=== PATIENT | male | born 1960 | race Caucasian/White ===

== ENCOUNTER 2017-04-17 21:13 | Emergency (ER) | payer OTHER ==
[2017-04-17] MEDS ORDERED: Sodium Chloride 0.9% 10 ML Syringe FLUSH PRN (22:01)
[2017-04-17] MEDS ORDERED: Acetaminophen 325 MG Tab PO ONE (22:05)
--- NOTE | 2017-04-17 22:13 | EDM.PDOC ---
ED HPI GENERAL MEDICAL PROBLEM - General Chief Complaint: Diabetic Complaint Stated Complaint: [phone] DOESNT FEEL WELL DIAGNOSED WITH DIABETES Time Seen by Provider: 04/17/17 21:54 Source of Information: Reports: Patient, Family, RN, RN Notes Reviewed History Limitations: Reports: No Limitations - History of Present Illness INITIAL COMMENTS - FREE TEXT/NARRATIVE: Pt presents to the ER with c/o not feeling well for the past few weeks. Pt states he was in the clinic to see Dr. Ahn today. He was diagnosed with diabetes today, was given IV fluids. He states he was to be admitted to the hospital but he refused at that time. Pt states he took the glipizide today that was prescribed to him, prior to eating. He states he feels shaky and generally "not well". He c/o dry mouth, thirst and frequency of urination. Onset: Gradual Headache Pain Score (Numeric/FACES): 7 - Related Data Allergies Allergy/AdvReac Type Severity Reaction Status Date / Time No Known Allergies Allergy Verified 04/17/17 21:20 Home Meds: Home Meds Triamterene/Hydrochlorothiazid [Triamterene-HCTZ 37.5-25 MG] 1 tab PO DAILY [History] Albuterol [Proventil HFA] 2 puff INH ASDIRECTED PRN 11/29/14 [History] Aspirin [Halfprin] 81 mg PO BID 11/29/14 [History] Fish Oil/Jackson-3 Fatty Acids [Fish Oil 1,000 MG] 1 gm PO DAILY 11/29/14 [History ] Metoprolol Tartrate [Lopressor] 25 mg PO DAILY 11/29/14 [History] Multivitamin [Multivitamins] 1 tab PO DAILY 11/29/14 [History] Omeprazole 20 mg PO DAILY 11/29/14 [History] Simvastatin 20 mg PO BEDTIME 11/29/14 [History] glipiZIDE [Glucotrol XL] 5 mg PO BID 04/17/17 [History] Past Medical History HEENT History: Reports: Impaired Vision Cardiovascular History: Reports: Angina, Other (See Below) Other Cardiovascular History: leaking valve Respiratory History: Reports: Asthma Genitourinary History: Reports: Renal Calculus Endocrine/Metabolic History: Reports: Diabetes, Type II, Obesity/BMI 30+ Oncologic (Cancer) History: Reports: Prostate - Past Surgical History GI Surgical History: Reports: Cholecystectomy, Hernia, Abdominal Male Surgical History: Reports: TURP-Transurethral Resection of Prostate Social & Family History - Tobacco Use Smoking Status *Q: Never Smoker Second Hand Smoke Exposure: No - Alcohol Use Days Per Week of Alcohol Use: 3 Number of Drinks Per Day: 2 Total Drinks Per Week: 6 - Recreational Drug Use Recreational Drug Use: No Drug Use in Last 12 Months: No - Living Situation & Occupation Living situation: Reports: , with Family Occupation: Employed ED ROS GENERAL - Review of Systems Review Of Systems: ROS reveals no pertinent complaints other than HPI. ED EXAM GENERAL NO PERIP PULSE - Physical Exam Exam: See Below Exam Limited By: No Limitations General Appearance: Alert, WD/WN, Mild Distress Eye Exam: Bilateral Eye: EOMI, Normal Inspection, PERRL Ears: Normal External Exam, Hearing Grossly Normal Nose: Normal Inspection Throat/Mouth: Normal Inspection, Normal Voice, No Airway Compromise Head: Atraumatic, Normocephalic Neck: Normal Inspection, Supple, Non-Tender, Full Range of Motion Respiratory/Chest: No Respiratory Distress, Lungs Clear, Normal Breath Sounds, No Accessory Muscle Use, Chest Non-Tender Cardiovascular: Normal Peripheral Pulses, Regular Rate, Rhythm, No Edema, No Gallop, No JVD, No Murmur, No Rub GI/Abdominal: Normal Bowel Sounds, Soft, No Organomegaly, No Distention, No Abnormal Bruit, No Mass, Tender (Male) Exam: Deferred Rectal (Males) Exam: Deferred Back Exam: Normal Inspection, Full Range of Motion, NT Extremities: Normal Inspection, Normal Range of Motion, Non-Tender, Normal Capillary Refill, No Pedal Edema Neurological: Alert, Oriented, CN II-XII Intact, Normal Cognition, Normal Gait, Normal Reflexes, No Motor/Sensory Deficits Psychiatric: Normal Affect, Normal Mood Skin Exam: Warm, Dry, Intact, Normal Color, No Rash Lymphatic: No Adenopathy Course - Vital Signs Last Recorded V/S: Last Vital Signs Temp 98.0 F 04/17/17 22:42 Pulse 67 04/17/17 22:42 Resp 18 04/17/17 22:42 BP 131/59 L 04/17/17 22:42 Pulse Ox 94 L 04/17/17 22:42 - Orders/Labs/Meds Orders: Active Orders 24 hr Category Date Time Status Blood Glucose Check, Bedside [RC] ONETIME Care 04/17/17 21:21 Active Blood Glucose Check, Bedside [RC] ONETIME Care 04/17/17 23:44 Active Peripheral IV Care [RC] . DIRECTED Care 04/17/17 22:01 Active NS + KCl 20mEq/L [Normal Saline with 20 mEq KCl] 1,000 Med 04/17/17 23:15 Active ml IV ASDIRECTED Sodium Chloride 0.9% [Saline Flush] Med 04/17/17 22:01 Active 10 ml FLUSH ASDIRECTED PRN Peripheral IV Insertion Adult [OM.PC] Stat Oth 04/17/17 22:01 Ordered Medication Orders Potassium Chloride/Sodium Chloride (Normal Saline With 20 Meq Kcl) 1,000 mls @ 100 mls/hr IV ASDIRECTED MARCK Last Admin: 04/17/17 23:23 Dose: 100 mls/hr Sodium Chloride (Saline Flush) 10 ml FLUSH ASDIRECTED PRN PRN Reason: Keep Vein Open Last Admin: 04/17/17 22:12 Dose: 10 ml Labs: Laboratory Tests 04/17/17 04/17/17 04/17/17 Range/Units 21:21 22:10 22:10 WBC 6.1 (5.0-10.0) 10^3/uL RBC 5.04 (4.6-6.2) 10^6/uL Hgb 15.1 D (14.0-18.0) g/dL Hct 42.7 (40.0-54.0) % MCV 84.7 (80-100) fL MCH 30.0 (27.0-34.0) pg MCHC 35.4 H (33.0-35.0) g/dL Plt Count 163 (150-450) 10^3/uL Neut % (Auto) 51.9 (42.2-75.2) % Lymph % (Auto) 35.4 (20.5-50.1) % [place] % (Auto) 9.1 H (2-8) % Eos % (Auto) 3.1 H (1.0-3.0) % Baso % (Auto) 0.5 (0.0-1.0) % Sodium 132 L (135-145) mmol/L Potassium 3.0 L (3.6-5.0) mmol/L Chloride 95 L (101-111) mmol/L Carbon Dioxide 28.0 (21.0-31.0) mmol/L Anion Gap 12.0 BUN 13 (7-18) mg/dL Creatinine 0.9 (0.6-1.3) mg/dL Est Cr Clr Drug Dosing 95.76 mL/min Estimated GFR (MDRD) > 60 BUN/Creatinine Ratio 14.44 Glucose 321 H (74-105) mg/dL POC Glucose 304 H (70-105) mg/dl Calcium 8.3 L (8.4-10.2) mg/dl Total Bilirubin 1.3 H (0.2-1.0) mg/dL AST 60 H (10-42) IU/L ALT 73 H (10-60) IU/L Alkaline Phosphatase 106 (42-121) IU/L Total Protein 6.9 (6.7-8.2) g/dl Albumin 3.8 (3.2-5.5) g/dl Globulin 3.1 Albumin/Globulin Ratio 1.23 Urine Color (YELLOW) Urine Appearance (CLEAR) Urine pH (5.0-9.0) Ur Specific [place] (1.005-1.030) Urine Protein (NEGATIVE) Urine Glucose (UA) (NEGATIVE) Urine Ketones (NEGATIVE) Urine Occult Blood (NEGATIVE) Urine Nitrite (NEGATIVE) Urine Bilirubin (NEGATIVE) Urine Urobilinogen (0.2-1.0) mg/dL Ur Leukocyte Esterase (NEGATIVE) Urine RBC /HPF Urine WBC (0-5/HPF) /HPF Ur Epithelial Cells /HPF Urine Bacteria (0-FEW/HPF) /HPF Ketones Negative 04/17/17 04/17/17 04/17/17 Range/Units 22:17 23:09 23:48 WBC (5.0-10.0) 10^3/uL RBC (4.6-6.2) 10^6/uL Hgb (14.0-18.0) g/dL Hct (40.0-54.0) % MCV (80-100) fL MCH (27.0-34.0) pg MCHC (33.0-35.0) g/dL Plt Count (150-450) 10^3/uL Neut % (Auto) (42.2-75.2) % Lymph % (Auto) (20.5-50.1) % [place] % (Auto) (2-8) % Eos % (Auto) (1.0-3.0) % Baso % (Auto) (0.0-1.0) % Sodium (135-145) mmol/L Potassium (3.6-5.0) mmol/L Chloride (101-111) mmol/L Carbon Dioxide (21.0-31.0) mmol/L Anion Gap BUN (7-18) mg/dL Creatinine (0.6-1.3) mg/dL Est Cr Clr Drug Dosing mL/min Estimated GFR (MDRD) BUN/Creatinine Ratio Glucose (74-105) mg/dL POC Glucose 346 H 222 H (70-105) mg/dl Calcium (8.4-10.2) mg/dl Total Bilirubin (0.2-1.0) mg/dL AST (10-42) IU/L ALT (10-60) IU/L Alkaline Phosphatase (42-121) IU/L Total Protein (6.7-8.2) g/dl Albumin (3.2-5.5) g/dl Globulin Albumin/Globulin Ratio Urine Color Yellow (YELLOW) Urine Appearance Slightly cloudy (CLEAR) Urine pH 6.0 (5.0-9.0) Ur Specific [place] 1.015 (1.005-1.030) Urine Protein 30 H (NEGATIVE) Urine Glucose (UA) 500 H (NEGATIVE) Urine Ketones 15 H (NEGATIVE) Urine Occult Blood Small H (NEGATIVE) Urine Nitrite Negative (NEGATIVE) Urine Bilirubin Negative (NEGATIVE) Urine Urobilinogen 0.2 (0.2-1.0) mg/dL Ur Leukocyte Esterase Negative (NEGATIVE) Urine RBC 0-5 /HPF Urine WBC Not seen (0-5/HPF) /HPF Ur Epithelial Cells Rare /HPF Urine Bacteria Few (0-FEW/HPF) /HPF Ketones 04/18/17 Range/Units 01:35 WBC (5.0-10.0) 10^3/uL RBC (4.6-6.2) 10^6/uL Hgb (14.0-18.0) g/dL Hct (40.0-54.0) % MCV (80-100) fL MCH (27.0-34.0) pg MCHC (33.0-35.0) g/dL Plt Count (150-450) 10^3/uL Neut % (Auto) (42.2-75.2) % Lymph % (Auto) (20.5-50.1) % [place] % (Auto) (2-8) % Eos % (Auto) (1.0-3.0) % Baso % (Auto) (0.0-1.0) % Sodium 135 (135-145) mmol/L Potassium 3.5 L (3.6-5.0) mmol/L Chloride 99 L (101-111) mmol/L Carbon Dioxide 27.0 (21.0-31.0) mmol/L Anion Gap 12.5 BUN 14 (7-18) mg/dL Creatinine 0.8 (0.6-1.3) mg/dL Est Cr Clr Drug Dosing 107.73 mL/min Estimated GFR (MDRD) > 60 BUN/Creatinine Ratio 17.50 Glucose 195 H (74-105) mg/dL POC Glucose (70-105) mg/dl Calcium 8.2 L (8.4-10.2) mg/dl Total Bilirubin 1.6 H (0.2-1.0) mg/dL AST 55 H (10-42) IU/L ALT 69 H (10-60) IU/L Alkaline Phosphatase 97 (42-121) IU/L Total Protein 6.7 (6.7-8.2) g/dl Albumin 3.6 (3.2-5.5) g/dl Globulin 3.1 Albumin/Globulin Ratio 1.16 Urine Color (YELLOW) Urine Appearance (CLEAR) Urine pH (5.0-9.0) Ur Specific [place] (1.005-1.030) Urine Protein (NEGATIVE) Urine Glucose (UA) (NEGATIVE) Urine Ketones (NEGATIVE) Urine Occult Blood (NEGATIVE) Urine Nitrite (NEGATIVE) Urine Bilirubin (NEGATIVE) Urine Urobilinogen (0.2-1.0) mg/dL Ur Leukocyte Esterase (NEGATIVE) Urine RBC /HPF Urine WBC (0-5/HPF) /HPF Ur Epithelial Cells /HPF Urine Bacteria (0-FEW/HPF) /HPF Ketones Meds: Medications Generic Name Dose Route Start Last Admin Trade Name Freq PRN Reason Stop Dose Admin Potassium Chloride/Sodium Chloride 1,000 mls @ 100 mls/hr 04/17/17 23:15 10/25 23:23 Normal Saline With 20 Meq Kcl IV 100 mls/hr ASDIRECTED MARCK Administration Sodium Chloride 10 ml 04/17/17 22:01 04/17/17 22:12 Saline Flush FLUSH 10 ml ASDIRECTED PRN Administration Keep Vein Open Discontinued Medications Generic Name Dose Route Start Last Admin Trade Name Jaspreet PRN Reason Stop Dose Admin Acetaminophen 650 mg 04/17/17 22:05 04/17/17 22:14 Tylenol PO 04/17/17 22:06 650 mg NOW ONE Administration Sodium Chloride 1,000 mls @ 999 mls/hr 04/17/17 22:56 Normal Saline IV 04/17/17 23:56 .BOLUS ONE Insulin Human Regular 10 unit 04/17/17 22:57 04/17/17 23:07 Humulin R IV 04/17/17 22:58 10 units ONETIME ONE Administration Potassium Chloride 40 meq 04/17/17 23:03 04/17/17 23:24 Klor-Con 10 PO 04/17/17 23:04 40 meq ONETIME ONE Administration - Re-Assessments/Exams Free Text/Narrative Re-Assessment/Exam: 04/18/17 01:34 Patient is upset and states he is uncomfortable in the ER bed. He states he is twitchy and cannot sleep and no one has checked on him. Report from his nurse is that he is frequently checked on by looking in the room and the patient has been laying peacefully with eyes closed each time. Patient continues to refuse to be sent to [place]. I asked if we could recheck his labs. If labs are improved, patient will be sent home to follow up with Dr. Ahn in the morning. 04/18/17 02:06 Labs have improved. Patient will follow up with Dr. Ahn in the morning. Departure - Departure Time of Disposition: 02:05 Disposition: Home, Self-Care 01 Condition: Fair Clinical Impression: Hyperglycemia - Discharge Information Instructions: Type 2 Diabetes Mellitus, Adult, [id number] Forms: ED Department Discharge Additional Instructions: Follow up with Dr. Ahn in the morning. Set up Diabetic counseling. Check your blood sugars as directed Continue taking prescribed medications as directed - My Orders Last 24 Hours: My Active Orders 04/17/17 21:21 Blood Glucose Check, Bedside [RC] ONETIME 04/17/17 22:01 Peripheral IV Care [RC] . DIRECTED Sodium Chloride 0.9% [Saline Flush] 10 ml FLUSH ASDIRECTED PRN Peripheral IV Insertion Adult [OM.PC] Stat 04/17/17 23:15 NS + KCl 20mEq/L [Normal Saline with 20 mEq KCl] 1,000 ml IV ASDIRECTED 04/17/17 23:44 Blood Glucose Check, Bedside [RC] ONETIME - Assessment/Plan Last 24 Hours: My Active Orders 04/17/17 21:21 Blood Glucose Check, Bedside [RC] ONETIME 04/17/17 22:01 Peripheral IV Care [RC] . DIRECTED Sodium Chloride 0.9% [Saline Flush] 10 ml FLUSH ASDIRECTED PRN Peripheral IV Insertion Adult [OM.PC] Stat 04/17/17 23:15 NS + KCl 20mEq/L [Normal Saline with 20 mEq KCl] 1,000 ml IV ASDIRECTED 04/17/17 23:44 Blood Glucose Check, Bedside [RC] ONETIME
[2017-04-17 22:37] LABS: CHLORIDE,CL 95 mmol/L (101-111); SODIUM,NA 132 mmol/L (135-145)
[2017-04-17 22:43] VITALS: BP 131/59
[2017-04-17] MEDS ORDERED: Sodium Chloride 0.9% 1,000 ML IV ONE (22:56)
[2017-04-17] MEDS ORDERED: Insulin Regular, Human 100 Units/ML 3 ML Vial IV ONE (22:57)
[2017-04-17] MEDS ORDERED: Potassium Chloride 10 MEQ Tab.ER PO ONE (23:03)
[2017-04-17] MEDS ORDERED: NS + KCl 20mEq/L 1,000 ML IV SCH (23:15)
[2017-04-18 02:00] LABS: ANION GAP 12.5; CHLORIDE,CL 99 mmol/L (101-111); SODIUM,NA 135 mmol/L (135-145)
== END 2017-04-18 02:17 | disposition home or self-care (01) ==
LOC: DL.ED 21:13
DX: E11.65 Type 2 diabetes mellitus with hyperglycemia (principal); J45.909 Unspecified asthma, uncomplicated; Z79.84 Long term (current) use of oral hypoglycemic drugs; Z79.899 Other long term (current) drug therapy; Z79.82 Long term (current) use of aspirin
CPT/HCPCS: 36415; 80053; 81001; 82009; 82962; 85025; 96365; 96366; 96375; 99284; A9270; J1815; J3480; J7050

== ENCOUNTER 2017-04-18 10:00 | Observation (INO) | payer OTHER ==
[2017-04-18] MEDS ORDERED: Zolpidem 5 MG Tab PO PRN (11:26)
[2017-04-18] MEDS ORDERED: Ondansetron 4 MG Tab.DIS PO PRN (11:26)
[2017-04-18] MEDS ORDERED: Albuterol/Ipratropium 3.0-0.5 MG/3 ML Neb Soln NEB PRN (11:26)
[2017-04-18] MEDS ORDERED: Albuterol 6.7 GM Inhaler INH PRN (11:29)
[2017-04-18] MEDS: Potassium Chloride 10 MEQ Tab.ER PO SCH ×2 (15:13→20:03)
[2017-04-18] MEDS: Acetaminophen 325 MG Tab PO PRN ×2 (15:13→20:03)
[2017-04-18] MEDS: Insulin Aspart 100 Units/ML 3 ML Pen SUBCUT SCH ×4 (15:15→21:01)
--- NOTE | 2017-04-18 15:20 | CT ---
Clinical history: 56-year-old hypertensive 275 pound diabetic male diagnosed with prostate cancer (20 ) and now complaining of abdominal pain (previous cholecystectomy and "kidney stones). CT scan abdo men May 2012 revealed "fatty liver with 6 mm proximal right ureteral calculus and mild diverticulos is colon". Scan technique: Volume acquisition of data from the abdomen and pelvis obtained after oral ingestion 2 bottles Redicat barium and before/during/after intravenous administration 100 cc nonionic Isovue co ntrast (3 cc/s via injector) while patient was lying supine on the Siemens multi slice scanner [place], [place]. All data archived in the PACS system for storage, reformat ting and study. Interpretation: 1. Cholecystectomy. Fatty liver. Normal stomach, spleen, pancreas and adrenal glands. 2. Atheromatous calcifications along the course of normal caliber aortoiliac vessels. No sign of abdo hayden aortic aneurysm. 3. Isolated tiny 1 mm calculus lower pole calyx of the right kidney but no other evidence of nephroli thiasis or signs of obstructive uropathy. Several tiny subcentimeter cortical cysts both kidneys.. So litary large 2 cm diameter exophytic cyst extending off the anterolateral cortex upper pole left kidn ey. No solid renal cortical mass lesions. Midline urinary bladder normal. 4. No abdominal or pelvic mass lesion, mesenteric or retroperitoneal lymphadenopathy, inflammatory "d irty" peritoneal fat, signs of mechanical bowel obstruction, ascites or free intraperitoneal air. Phyllis dence radical prostatectomy (surgical clips) 5. Hypertrophic marginal spondylosis lower dorsal and upper lumbar spine. No fracture, dislocation or bony metastases.. 6. Lung bases clear. CONCLUSION: Nonobstructing nephrolithiasis right kidney and renal cysts bilaterally. Cholecystectomy and prostatectomy. Fatty liver.
[2017-04-18] MEDS: Sodium Chloride 0.9% 1,000 ML IV SCH (15:29)
--- NOTE | 2017-04-18 18:48 | HP ---
CHIEF COMPLAINT: Abdominal pain, headaches, generalized malaise, muscle cramping, and higher blood glucose. HISTORY OF PRESENTING ILLNESS: Mr. Truong Edmond is a 56-year-old male with medical history significant for hypertension, hyperlipidemia, remote history of prostate cancer, status post prostatectomy, history of obstructive sleep apnea, obesity, nephrolithiasis, hernia, and recent diagnosis of asthma, who presented to the clinic yesterday with complaints of not feeling well and was diagnosed with diabetes mellitus with hyperglycemic episodes. He was given glipizide and was treated with IV fluids and was discharged as he did not want to be admitted to the hospital yesterday. He went home and did not feel well, so came back to the emergency room and received more IV fluids, and went home again, but this morning he was feeling very sick, so came back to the clinic and needing admission to the hospital secondary to failed outpatient treatments and requiring more aggressive treatment at this time. The patient claims that in the last 2 to 3 days, the patient has been feeling sick, more muscle cramps, back pain, abdominal pain, and also complaining of symptoms of polyuria and polydipsia and blurring of the vision and blurring of the vision has been going on for the last few weeks, and so his polyuria and polydipsia are going on for the last few weeks. He denied any fevers or chills in the last few days. No nausea or vomiting in the last few days. No complaints of chest pain. No complaints of shortness of breath at this time. No complaints of cough with sputum in the last few days. No complaints of burning micturition, but increased frequency in urination. The patient also complains of abdominal pain which is mostly in the lower abdomen 3 to 4/10 in intensity, no clear aggravating factors. No clear relieving factors, associated with nausea but no vomiting. Also, complains of mild headache, both frontal and occipital, 2 to 3/10 in intensity, no clear aggravating or relieving factors. The patient denied any history of chest pains on exertion, but has dyspnea on exertion secondary to his underlying asthma. Denied any hematemesis, hematochezia, or melenic stools. The patient has history of gastroesophageal reflux disease and peptic ulcer disease in the past. Normal bowel and bladder habits otherwise. Denied any hematemesis, hematochezia, or melenic stools. REVIEW OF SYSTEMS: A complete review of system including skin, ear, nose, and throat, cardiovascular system, respiratory system, gastrointestinal system, genitourinary system, hematology, oncology, neurology, allergy/immunology, constitutional were all evaluated and were negative except for the above-said notes. PAST MEDICAL HISTORY: Significant for hypertension; hyperlipidemia; obesity; obstructive sleep apnea; prostate cancer, status post prostatectomy; history of hernia; nephrolithiasis; abnormal liver function test in the past; Gilbert's disease. PAST SURGICAL HISTORY: Significant for, 1. Hernia repair. Hiatal. 2. Foot surgery. 3. Colonoscopy. 4. Cholecystectomy. 5. Carpal tunnel release. 6. Prostatectomy. 7. Bladder cystoscopy. 8. Upper GI scope. 9. Rotator cuff repair. 10.Left heart catheterization. FAMILY HISTORY: Significant for diabetes, heart disease, and hypertension in his father and diabetes in his mother. Cancer in his sister, colon cancer; lung cancer in his maternal grandmother. Asthma in his maternal grandfather. Heart disease and hypertension in his paternal grandmother. Maternal uncle with brain cancer and cousin with throat cancer. ALLERGIC HISTORY: No known drug allergies. SOCIAL HISTORY: The patient denies any history of smoking tobacco. No history of alcohol intake. HOME MEDICATIONS: Include, 1. Glipizide 5 mg twice a day, recently started yesterday. 2. Triamterene/hydrochlorothiazide 1 tablet twice a day. 3. Simvastatin 20 mg at bedtime. 4. Omeprazole 20 mg daily. 5. Multivitamin 1 tablet daily. 6. Metoprolol 25 mg daily. 7. Fish oil 1 g daily. 8. Aspirin 81 mg twice a day. 9. Albuterol 2 puffs inhalation as directed as needed. LABORATORY DATA: 1. No new labs ordered for today. The patient had some labs drawn in the clinic yesterday which shows sodium 134, potassium 3.7, chloride 95, bicarb 28.7. 2. Blood glucose 375. 3. WBC 5.8, hemoglobin 16.8, hematocrit 48, platelet count 171. 4. Urinalysis, negative for nitrites, negative for leukocytes. ASSESSMENT: 1. New-onset diabetes mellitus type 2. 2. Hypertension. 3. Hyperlipidemia. 4. Abdominal pain. 5. History of prostate cancer. 6. Obstructive sleep apnea, not able to tolerate CPAP at this time. 7. Obesity. PLAN: 1. New-onset diabetes. The patient is noted to have uncontrolled diabetes. The patient had a blood glucose of 500 yesterday, and this morning he is fasting and his blood sugar is 221, is unable to tolerate oral pills well, he has failed outpatient treatment. The patient will be referred to observation status. We will have him on insulin regimen. We will calculate according to the body weight and put him on Lantus and Humalog insulin. We will have him on consistent carbohydrate diet. His hemoglobin A1c from yesterday was 8.6, consistent with diabetes mellitus, we will continue insulin regimen. The patient was explained about the risks, benefits, complications of insulin treatment, which he understands and verbalized the same. 2. Hypertension. The patient is noted to be on triamterene/hydrochlorothiazide. We will continue the same. The patient might benefit from adding an JOY inhibitor secondary to his new-onset diabetes. Continue with beta-mj for now. We will dose adjust medications. 3. Obstructive sleep apnea. The patient is unable to tolerate the CPAP machine very well. The patient is encouraged to follow with [facility]monary Clinic for getting a different mask to see if he can tolerate the CPAP while at night. 4. Hyperlipidemia, continue statin for now. 5. DVT prophylaxis. We will have him on Lovenox for DVT prophylaxis. 6. Abdominal pain. The patient is complaining of abdominal pain, exact etiology not clear. The patient was ordered a CT scan of the abdomen and pelvis as an outpatient. We will try to obtain the CT scan to explain for his abdominal pain. Given his history of prostate cancer, we will get a CT scan of the abdomen and pelvis with IV and oral contrast. We will keep him hydrated with IV fluids. 7. Code status. The patient wants to be full code. 8. Discussed with the patient and family members regarding the plan of care. Discussed with Dr. Ahn regarding the plan of care. Reviewed the labs and medications. Reviewed the old charts. [facility] /[id number]
[2017-04-18] MEDS ORDERED: Insulin Detemir 100 Units/ML 3 ML Pen SUBCUT SCH (21:00)
[2017-04-18] MEDS: Aspirin 81 MG Tab.EC PO SCH (21:00)
[2017-04-18] MEDS: Simvastatin 10 MG Tab PO SCH (21:00)
[2017-04-18] MEDS: oxyCODONE 5 MG Tab PO PRN (22:29)
[2017-04-19] MEDS: Sodium Chloride 0.9% 1,000 ML IV SCH ×2 (01:33→11:36)
[2017-04-19] MEDS: Omeprazole 20 MG Cap.CR PO SCH (05:57)
[2017-04-19] MEDS: Acetaminophen 325 MG Tab PO PRN (06:04)
[2017-04-19 07:16] LABS: CHLORIDE,CL 103 mmol/L (101-111); SODIUM,NA 135 mmol/L (135-145)
[2017-04-19] MEDS: oxyCODONE 5 MG Tab PO PRN (08:13)
[2017-04-19] MEDS: Aspirin 81 MG Tab.EC PO SCH ×2 (08:41→20:37)
[2017-04-19] MEDS: Potassium Chloride 10 MEQ Tab.ER PO SCH ×2 (08:41→17:26)
[2017-04-19] MEDS: Multivitamins,Therapeutic Tab PO SCH (08:41)
[2017-04-19] MEDS: Insulin Aspart 100 Units/ML 3 ML Pen SUBCUT SCH ×7 (08:42→22:27)
[2017-04-19] MEDS: Enoxaparin 40 MG/0.4 ML Syringe SUBCUT SCH (08:43)
[2017-04-19] MEDS ORDERED: Metoprolol Tartrate 25 MG Tab PO SCH (09:00)
[2017-04-19] MEDS ORDERED: Non-Formulary Medication 1 Each (Fish Oil/Omega-3 Fatty Acids [Fish Oil 1,000 Mg] 1 GM) PO SCH (09:00)
[2017-04-19] MEDS ORDERED: Insulin Detemir 100 Units/ML 3 ML Pen SUBCUT ONE (12:00)
[2017-04-19] MEDS: Lisinopril 5 MG Tab PO SCH (14:15)
--- NOTE | 2017-04-19 15:13 | PN ---
DATE: 04/19/2017 SUBJECTIVE: Mr. Truong Edmond is a 56-year-old male with medical history significant for hypertension, hyperlipidemia, history of prostate cancer in the past admitted to the hospital with new diagnosis of diabetes, complicated with dehydration, blurring of the vision, and neuropathy. For the last 24 hours, the patient was continued on IV fluids. He was maintained on subcutaneous insulin. He continues to have uncontrolled diabetes. Continues to have some mild blurring of the vision. Continues to have mild headaches intermittently. Denies any chest pain. No shortness of breath. No abdominal pain. No nausea. No vomiting. No diarrhea. The patient had a CT scan of the abdomen and pelvis yesterday, which did not show any acute pathology. REVIEW OF SYSTEMS: Cardiovascular, respiratory, gastrointestinal, neurology, constitutional were all evaluated. PHYSICAL EXAMINATION: Vital Signs: Temperature of 97.9, pulse of 50, blood pressure 129/77, respiratory rate of 20, and saturating at 98% on room air. General Appearance: The patient is alert and oriented to time, place, and person. Follows commands spontaneously. Cardiovascular System: S1, S2 heard with normal intensity. No gallops. Respiratory System: Clear to auscultation bilaterally. No wheeze. No crepitations. Abdomen: Soft. Bowel sounds positive. Nontender. No rigidity. No guarding. No rebound tenderness. Extremities: No edema bilateral lower extremities. LABORATORY DATA: Reviewed. Sodium 135, potassium 3.6, chloride 103, bicarb 25, BUN 9, creatinine 0.8, and glucose 242. MEDICATIONS: Reviewed continue with: 1. Tylenol 650 every 4 hours as needed for pain. 2. DuoNeb 3 mL nebulizer every 4 hours as needed for shortness of breath. 3. Aspirin 81 mg twice a day. 4. Lovenox 40 mg subcutaneous daily. 5. NovoLog supplemental scale. 6. NovoLog 15 units 3 times a day with each meals. 7. Levemir 40 units subcutaneous at bedtime. 8. Metoprolol 25 mg daily. 9. Omeprazole 20 mg daily. 10.Zofran as needed. 11.Potassium chloride 20 mEq twice a day. 12.Zocor 20 mg at bedtime. 13.Ambien as needed for sleep. ASSESSMENT: 1. New onset diabetes mellitus. 2. Hypokalemia, resolved. 3. Hypertension. 4. Hyperlipidemia. 5. Obesity. PLAN: 1. New onset diabetes. Patient is started on insulin regimen. We initially started him on 0.5 units/kg body weight with 10 units of NovoLog and 30 units of Levemir but as his blood sugars remain elevated, we will increase the Levemir to 40 units subcutaneous at bedtime and increase the NovoLog to 15 units with each meals. Also have him on additional supplemental scale as needed for additional coverage of his blood glucose. The patient is given education material about diabetes mellitus. The patient was explained about the importance of diet, exercise, and compliance with medications for good control of his diabetes. The patient has an upcoming appointment on Friday at [facility] in [place] for nursing educator and dietitian and urologist. He will keep up those appointments. The patient was explained about the importance of exercise on his health. 2. Hypertension, improved. Continue with beta-mj at this time. The patient may benefit from adding an JOY inhibitor for better control of his diabetes and also blood pressure. 3. Obstructive sleep apnea. The patient has CPAP at home but he is not able to tolerate the CPAP very well. He is advised to follow with Pulmonary Clinic for further follow up on obstructive sleep apnea. 4. DVT prophylaxis, continue with Lovenox. 5. Abdominal pain. The patient had a CT scan of the abdomen and pelvis yesterday, which was benign. 6. We will discontinue the IV fluids for now. 7. Possible discharge in a.m. if he remains hemodynamically stable and his blood sugars well controlled. [facility] /[id number]
[2017-04-19] MEDS: Insulin Detemir 100 Units/ML 3 ML Pen SUBCUT SCH ×2 (17:32→21:18)
[2017-04-19] MEDS ORDERED: Insulin Detemir 100 Units/ML 3 ML Pen SUBCUT SCH (19:00)
[2017-04-19] MEDS: Simvastatin 10 MG Tab PO SCH (20:37)
[2017-04-20] MEDS: Omeprazole 20 MG Cap.CR PO SCH (06:14)
[2017-04-20] MEDS: Acetaminophen 325 MG Tab PO PRN (06:18)
[2017-04-20] MEDS: Potassium Chloride 10 MEQ Tab.ER PO SCH (08:48)
[2017-04-20] MEDS: Multivitamins,Therapeutic Tab PO SCH (08:48)
[2017-04-20] MEDS: Aspirin 81 MG Tab.EC PO SCH (08:49)
[2017-04-20] MEDS: Lisinopril 5 MG Tab PO SCH (08:49)
[2017-04-20] MEDS: Enoxaparin 40 MG/0.4 ML Syringe SUBCUT SCH (08:50)
[2017-04-20] MEDS: Insulin Aspart 100 Units/ML 3 ML Pen SUBCUT SCH ×4 (08:51→12:34)
[2017-04-20] MEDS ORDERED: Metoprolol Tartrate 25 MG Tab PO SCH (09:00)
[2017-04-20 15:25] VITALS: BP 119/65
--- NOTE | 2017-04-20 20:38 | DISCH ---
ADMITTING DIAGNOSES: 1. New-onset diabetes mellitus. 2. New-onset diabetes complicated with headache, blurring of the vision, and neuropathy. DISCHARGE DIAGNOSES: 1. New-onset diabetes mellitus, controlled on insulin regimen. 2. Abdominal pain, resolved. 3. Blurring of the vision, resolved. 4. Neuropathy, resolved. HISTORY OF PRESENTING ILLNESS: Mr. Truong Edmond is a 56-year-old male with medical history significant for hypertension; hyperlipidemia; remote history of prostate cancer, status post prostatectomy in the past; history of obstructive sleep apnea, has been doctoring in the clinic for the last 1 day with uncontrolled diabetes, new onset, and had complications with blurring of the vision, abdominal discomfort, and neuropathy, so requiring admission to the hospital. After getting admitted, he was started on insulin regimen. He was started on 0.5 units/kg body weight and then gradually increased the dose to optimize his blood sugars. His recent hemoglobin A1c done at the clinic was around 8. The patient was started on subcutaneous insulin regimen. He was noted to be on glipizide prior to coming to the hospital. We discontinued the glipizide, and we were able to titrate the insulin to optimize his blood sugar. His fasting blood sugar at this time is around 160. The patient was educated about the importance of diet, exercise, and compliance with medications for good control of his diabetes, was also explained about hypoglycemic episodes, and how to treat hypoglycemic episode. He was educated on how to take subcutaneous insulin and how to check his blood sugars. He has an upcoming appointment tomorrow at [facility] in [place] with clinical systems educator and dietitian to educate more on the diabetes. He will also be seeing his primary care physician in next 1 week of time. He was explained about maintaining a log book at home and keeping a track of his blood sugars, and taking this log book to his primary care appointment. He remained hemodynamically stable on this admission. He is discharged home in stable condition. PHYSICAL EXAMINATION: On the day of discharge, Vital Signs: Temperature of 97.2, pulse of 55, blood pressure 118/63, respiratory rate of 20, saturating at 98% on room air. General Appearance: The patient is well oriented to time, place, and person. Follows commands spontaneously. Cardiovascular System: S1, S2 heard with normal intensity. No gallops. Respiratory System: Clear to auscultation bilaterally. No wheeze. No crepitations. Abdomen: Soft. Bowel sounds positive. Nontender. No rigidity. Extremities: No edema, bilateral lower extremities. Neurology: No gross focal neurological deficits. DISCHARGE MEDICATIONS: Include, 1. Proventil 2 puff inhalation as needed for shortness of breath. 2. Aspirin 81 mg twice a day. 3. Fish oil 1 g daily. 4. NovoLog insulin 15 units 3 times a day with each meal. 5. Levemir 40 units subcutaneous at bedtime. 6. Lisinopril 5 mg daily. 7. Metoprolol decreased to 12.5 mg daily. 8. Multivitamin 1 tablet daily. 9. Omeprazole 20 mg daily. 10.Simvastatin 20 mg at bedtime. 11.Triamterene/hydrochlorothiazide one tablet once a day dosing. CONDITION ON ADMISSION: Poor. CONDITION ON DISCHARGE: Stable. ACTIVITY: As tolerated. DIET: Cardiac healthy diet with diabetic diet. FOLLOWUP: 1. Follow up with primary care physician as scheduled. 2. Follow up with clinical systems educator and dietitian as scheduled in a.m. [facility] /[id number]
== END 2017-04-20 15:45 | disposition home or self-care (01) ==
LOC: DL.MS 10:51 → UNDOADMOB 10:51 → DL.MS 11:26
PROVIDERS: ADMIT Internal Medicine; ATTEND Internal Medicine
DX: E11.65 Type 2 diabetes mellitus with hyperglycemia (principal); E11.40 Type 2 diabetes mellitus with diabetic neuropathy, unspecified; E11.69 Type 2 diabetes mellitus with other specified complication; I10 Essential (primary) hypertension; E78.5 Hyperlipidemia, unspecified; G47.33 Obstructive sleep apnea (adult) (pediatric); E66.9 Obesity, unspecified; J45.909 Unspecified asthma, uncomplicated; K21.9 Gastro-esophageal reflux disease without esophagitis; E87.6 Hypokalemia; Z85.46 Personal history of malignant neoplasm of prostate; Z90.49 Acquired absence of other specified parts of digestive tract; Z87.442 Personal history of urinary calculi; Z98.890 Other specified postprocedural states; Z79.899 Other long term (current) drug therapy; Z79.82 Long term (current) use of aspirin
CPT/HCPCS: 36415; 74178; 80048; 82962; 83735; 84100; 85027; 94640; 96360; 96361; 96372; A9270; G0378; G0379; J1650; J1815; J7030; Q9967

== ENCOUNTER 2020-03-07 06:51 | Day surgery (SDC) | payer OTHER ==
[~2020-03-07 06:51] MED LIST: Dextrose 5%-0.45% NaCl 1,000 ML IV SCH; Midazolam 1 MG/ML 2 ML SDV ONE; Sodium Chloride 0.9% 10 ML Syringe FLUSH PRN; fentaNYL 100 MCG/2 ML SDV ONE
[2020-03-07] MEDS ORDERED: fentaNYL 100 MCG/2 ML SDV IV ONE ×3 (06:52→08:24)
[2020-03-07] MEDS ORDERED: Midazolam 1 MG/ML 2 ML SDV IV ONE ×5 (06:52→08:30)
[2020-03-07 10:38] VITALS: BP 131/87; PULSE 52
--- NOTE | 2020-03-07 11:04 | OR ---
DATE: 03/07/2020 PROCEDURE: Total colonoscopy. INSTRUMENT USED: PCF-H190DL Olympus video colonoscope. PREMEDICATIONS: Fentanyl 100 mcg intravenous, Versed 3 mg intravenous. Nasal O2 cannula. The procedure was done under pulse oximetry, BP recording, and laboratory monitor. INDICATION: The patient with high-risk family history for colon cancer. Colonoscopic examination is done for detection of any polypoid lesions and removal, endoscopic hemostasis therapy if needed. DESCRIPTION OF PROCEDURE: Initial rectal exam was unremarkable. Rigid anoscopy was normal. The colonoscope was passed with ease. Diverticular opening was noted in the distal left colon. The scope was passed with ease to the ileocecal area. Photographs were taken of the normal-appearing cecum, identified by landmarks of appendiceal orifice and double-bulged ileocecal folds. No bleeding was noted from any of the visualized areas at the commencement of the examination. Bowel preparation was found to be adequate. Placedo scale 3 in all the regions, total scope 9. No stricture. No vascular ectasia. No large isolated ulceration seen. No evidence of diffuse inflammatory bowel disease in the form of friability, contact bleeding, or ulcerations. No polyp or tumor mass identified. Probing the proximal sides of folds and flexures using adequate distention and clearing up the stool material, withdrawal of the scope was made. Cecum to rectum time over 6 minutes. No bleeding was noted from any of the visualized areas at the completion of examination. IMPRESSION: Diverticulosis. The patient tolerated the procedure well. [facility] /[id number]
== END 2020-03-07 10:40 | disposition home or self-care (01) ==
LOC: DL.ENDO 06:51
PROVIDERS: ATTEND Internal Medicine Gastroenterology
DX: Z12.11 Encounter for screening for malignant neoplasm of colon (principal); K57.30 Diverticulosis of large intestine without perforation or abscess without bleeding; E66.09 Other obesity due to excess calories; E78.5 Hyperlipidemia, unspecified; I10 Essential (primary) hypertension; G47.33 Obstructive sleep apnea (adult) (pediatric); E11.9 Type 2 diabetes mellitus without complications; Z85.46 Personal history of malignant neoplasm of prostate; Z80.0 Family history of malignant neoplasm of digestive organs; Z98.890 Other specified postprocedural states; Z90.49 Acquired absence of other specified parts of digestive tract; Z79.899 Other long term (current) drug therapy; Z79.82 Long term (current) use of aspirin; Z79.84 Long term (current) use of oral hypoglycemic drugs; Z68.41 Body mass index [BMI] 40.0-44.9, adult
CPT/HCPCS: J2250; J3010; J7042

== ENCOUNTER 2020-04-19 10:23 | Emergency (ER) | payer OTHER ==
--- NOTE | 2020-04-19 10:32 | EDM.PDOC ---
ED HPI GENERAL MEDICAL PROBLEM - General Chief Complaint: Chest Pain Stated Complaint: CHEST PAIN, HEADACHE, HARD TO BREATH Time Seen by Provider: 04/19/20 10:32 Source of Information: Reports: Patient, Old Records, RN, RN Notes Reviewed History Limitations: Reports: No Limitations - History of Present Illness INITIAL COMMENTS - FREE TEXT/NARRATIVE: Pt presents to ER from home by POV with onset of wheezing, cough, headache, sharp chest pain and chills. He had COVID in 2020 and has been off of quarantine for 10 days. He did receive IV antibody infusion when he had COVID. 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: Breathing Treatments - Related Data Allergies Allergy/AdvReac Type Severity Reaction Status Date / Time No Known Allergies Allergy Verified 04/19/20 10:53 Home Meds: Home Meds Albuterol [Proventil HFA] 2 puff INH ASDIRECTED PRN 11/29/14 [History] Aspirin [Halfprin] 81 mg PO DAILY 11/29/14 [History] Fish Oil/Parish-3 Fatty Acids [Fish Oil 1,000 MG] 1,500 mg PO DAILY 11/29/14 [History] Multivitamin [Multivitamins] 1 tab PO DAILY 11/29/14 [History] Omeprazole 20 mg PO DAILY 11/29/14 [History] Simvastatin 20 mg PO BEDTIME 11/29/14 [History] Metoprolol Tartrate [Lopressor] 12.5 mg PO DAILY #30 tablet 04/20/17 [Rx] Acyclovir 200 mg PO DAILY 03/06/20 [History] DULoxetine [Cymbalta] 30 mg PO DAILY 03/06/20 [History] Fluticasone Propionate 1 - 2 spray NASBOTH ASDIRECTED PRN 03/06/20 [History] Ipratropium/Albuterol Sulfate [Iprat-Albut 0.5-3(2.5) mg/3 ml] 1 vial INH ASDIRECTED PRN 03/06/20 [History] Loratadine 10 mg PO DAILY 03/06/20 [History] Sildenafil [Viagra] 100 mg PO ASDIRECTED PRN 03/06/20 [History] metFORMIN [Glucophage] 1,000 mg PO BIDMEALS 03/06/20 [History] Past Medical History HEENT History: Reports: Impaired Vision Cardiovascular History: Reports: Angina, High Cholesterol, Hypertension, Other (See Below) Other Cardiovascular History: leaking valve. HX OF ACS (ACUTE CORONARY SYNDROME) Respiratory History: Reports: Asthma, Sleep Apnea Gastrointestinal History: Reports: Bowel Obstruction, Chronic Diarrhea, Cirrhosis, GERD, Hiatal Hernia, Irritable Bowel Syndrome, Other (See Below) Other Gastrointestinal History: HX OF SPARKS(NONALCOHOLIC STEATOHEPATITIS) Genitourinary History: Reports: BPH, Renal Calculus Musculoskeletal History: Reports: Fracture, Other (See Below) Other Musculoskeletal History: hx lumbar vertebrae fx. HX OF PLANTAR FASCITIS OF LEFT FOOT Neurological History: Reports: None Psychiatric History: Reports: None Endocrine/Metabolic History: Reports: Diabetes, Type II, Obesity/BMI 30+ Hematologic History: Reports: None Immunologic History: Reports: None Oncologic (Cancer) History: Reports: Prostate Dermatologic History: Reports: None - Infectious Disease History Infectious Disease History: Reports: Chicken Pox, Influenza, Novel Coronavirus - Past Surgical History Head Surgeries/Procedures: Reports: None HEENT Surgical History: Reports: Naso-Sinus Surgery Cardiovascular Surgical History: Reports: Other (See Below) Other Cardiovascular Surgeries/Procedures: HX OF CARDIAC CATH Respiratory Surgical History: Reports: None GI Surgical History: Reports: Cholecystectomy, Colonoscopy, EGD, Hernia, Abdominal, Hernia Repair/Other Male Surgical History: Reports: Cystectomy, Lithotripsy (ESWL), Prostatectomy, TURP-Transurethral Resection of Prostate, Other (See Below) Other Male Surgeries/Procedures: HX OF PROSTATE CANCER. HX OF LUTS(LOWER URINARY TRACT SYMPTOMS- IMPROVED WITH BLOOD SUGAR CONTROL). HX OF ED Endocrine Surgical History: Reports: None Neurological Surgical History: Reports: None Musculoskeletal Surgical History: Reports: Carpal Tunnel, Shoulder Surgery Other Musculoskeletal Surgeries/Procedures:: repair rotater cuff Oncologic Surgical History: Reports: None Dermatological Surgical History: Reports: Skin Biopsy Social & Family History - Family History Family Medical History: No Pertinent Family History - Caffeine Use Caffeine Use: Reports: Coffee - Living Situation & Occupation Living situation: Reports: , with Family Occupation: Employed ED ROS GENERAL - Review of Systems Review Of Systems: Comprehensive ROS is negative, except as noted in HPI. ED EXAM, GENERAL - Physical Exam Exam: See Below Exam Limited By: No Limitations General Appearance: Alert, WD/WN, No Apparent Distress, Obese Nose: No Blood, Nasal Drainage Throat/Mouth: Normal Inspection, Normal Lips, Normal Teeth, Normal Gums, Normal Oropharynx, Normal Voice, No Airway Compromise Head: Atraumatic, Normocephalic Neck: Normal Inspection, Supple, Non-Tender, Full Range of Motion Respiratory/Chest: No Respiratory Distress, No Accessory Muscle Use, Decreased Breath Sounds, Crackles, Wheezing. No: Rales, Rhonchi, Stridor Cardiovascular: Regular Rate, Rhythm GI/Abdominal: Normal Bowel Sounds, Soft, Non-Tender, Other (Benign obese abdomen) Back Exam: Normal Inspection Extremities: Normal Inspection, Normal Range of Motion, Non-Tender, Normal Capillary Refill, No Pedal Edema Neurological: Alert, Oriented, CN II-XII Intact, Normal Cognition, Normal Gait, No Motor/Sensory Deficits Psychiatric: Normal Affect, Normal Mood Skin Exam: Warm, Dry, Intact, Normal Color, No Rash #1 Interpretation EKG Date: 04/19/20 Time: 10:51 Rhythm: Other (Sinus radha) Rate (Beats/Min): 51 [place]: Normal P-Wave: Present QRS: Normal ST-T: Normal QT: Normal Comparison: NA - No Prior EKG Course - Vital Signs Last Recorded V/S: Last Vital Signs Temp 96 F L 04/19/20 10:30 Pulse 99 04/19/20 11:22 Resp 16 04/19/20 10:30 BP 152/75 H 04/19/20 10:30 Pulse Ox 100 04/19/20 10:30 - Orders/Labs/Meds Orders: Active Orders 24 hr Category Date Time Status EKG 12 Lead [EKG Documentation Completion] [RC] STAT Care 04/19/20 10:33 Active Peripheral IV Care [RC] . DIRECTED Care 04/19/20 10:34 Active RT Aerosol Therapy [RC] ASDIRECTED Care 04/19/20 11:10 Active CULTURE BLOOD [BC] Stat Lab 04/19/20 10:41 Received Sodium Chloride 0.9% [Saline Flush] Med 04/19/20 10:33 Active 10 ml FLUSH ASDIRECTED PRN Peripheral IV Insertion Pediatric [OM.PC] Stat Oth 02/10/21 10:33 Ordered Medication Orders Sodium Chloride (Saline Flush) 10 ml FLUSH ASDIRECTED PRN PRN Reason: Keep Vein Open Last Admin: 04/19/20 11:40 Dose: 10 ml Documented by: LEIDY Labs: Laboratory Tests 04/19/20 04/19/20 04/19/20 Range/Units 10:41 10:41 10:41 WBC 6.3 (5.0-10.0) 10^3/uL RBC 4.91 (4.6-6.2) 10^6/uL Hgb 13.2 L (14.0-18.0) g/dL Hct 40.7 (40.0-54.0) % MCV 82.9 D (80-100) fL MCH 26.9 L (27.0-34.0) pg MCHC 32.4 L (33.0-35.0) g/dL Plt Count 224 (150-450) 10^3/uL Neut % (Auto) 55.7 (42.2-75.2) % Lymph % (Auto) 30.2 (20.5-50.1) % [place] % (Auto) 10.3 H (2-8) % Eos % (Auto) 3.5 H (1.0-3.0) % Baso % (Auto) 0.3 (0.0-1.0) % PT 10.2 (9.0-12.0) SEC INR 1.1 (0.9-1.2) APTT 24.5 (22.0-34.0) SEC D-Dimer, Quantitative < 100 (0-400) ng/mL Sodium 141 (136-145) mmol/L Potassium 4.0 (3.5-5.1) mmol/L Chloride 102 (98-107) mmol/L Carbon Dioxide 31 (21-32) mmol/L Anion Gap 12.0 (7-13) mEq/L BUN 12 (7-18) mg/dL Creatinine 0.88 (0.70-1.30) mg/dL Est Cr Clr Drug Dosing 94.48 mL/min Estimated GFR (MDRD) > 60 BUN/Creatinine Ratio 13.6 (No establ ref range) Glucose 96 (74-99) mg/dL Lactic Acid (0.4-2.0) mmol/L Calcium 9.0 (8.5-10.1) mg/dL Ferritin (26-388) mg/mL Total Bilirubin 0.9 (0.2-1.0) mg/dL AST 30 (15-37) U/L ALT 71 H (16-63) U/L Alkaline Phosphatase 88 (46-116) U/L Lactate Dehydrogenase 162 (85-227) U/L Troponin I < 0.017 (0.000-0.056) ng/mL C-Reactive Protein < 0.2 (0.0-0.9) mg/dL B-Natriuretic Peptide 24 (0-100) pg/ml Total Protein 7.3 (6.4-8.2) g/dL Albumin 3.8 (3.4-5.0) g/dL Globulin 3.5 Albumin/Globulin Ratio 1.1 04/19/20 04/19/20 Range/Units 10:41 10:41 WBC (5.0-10.0) 10^3/uL RBC (4.6-6.2) 10^6/uL Hgb (14.0-18.0) g/dL Hct (40.0-54.0) % MCV (80-100) fL MCH (27.0-34.0) pg MCHC (33.0-35.0) g/dL Plt Count (150-450) 10^3/uL Neut % (Auto) (42.2-75.2) % Lymph % (Auto) (20.5-50.1) % [place] % (Auto) (2-8) % Eos % (Auto) (1.0-3.0) % Baso % (Auto) (0.0-1.0) % PT (9.0-12.0) SEC INR (0.9-1.2) APTT (22.0-34.0) SEC D-Dimer, Quantitative (0-400) ng/mL Sodium (136-145) mmol/L Potassium (3.5-5.1) mmol/L Chloride (98-107) mmol/L Carbon Dioxide (21-32) mmol/L Anion Gap (7-13) mEq/L BUN (7-18) mg/dL Creatinine (0.70-1.30) mg/dL Est Cr Clr Drug Dosing mL/min Estimated GFR (MDRD) BUN/Creatinine Ratio (No establ ref range) Glucose (74-99) mg/dL Lactic Acid 1.4 (0.4-2.0) mmol/L Calcium (8.5-10.1) mg/dL Ferritin 17 L (26-388) mg/mL Total Bilirubin (0.2-1.0) mg/dL AST (15-37) U/L ALT (16-63) U/L Alkaline Phosphatase (46-116) U/L Lactate Dehydrogenase (85-227) U/L Troponin I (0.000-0.056) ng/mL C-Reactive Protein (0.0-0.9) mg/dL B-Natriuretic Peptide (0-100) pg/ml Total Protein (6.4-8.2) g/dL Albumin (3.4-5.0) g/dL Globulin Albumin/Globulin Ratio Meds: Medications Generic Name Dose Route Start Last Admin Trade Name Freq PRN Reason Stop Dose Admin Sodium Chloride 10 ml 04/19/20 10:33 04/19/20 11:40 Saline Flush FLUSH 10 ml ASDIRECTED PRN Administration Keep Vein Open Discontinued Medications Generic Name Dose Route Start Last Admin Trade Name Freq PRN Reason Stop Dose Admin Albuterol/Ipratropium 3 ml 04/19/20 11:10 04/19/20 11:39 Duoneb 3.0-0.5 Mg/3 Ml NEB 04/19/20 11:11 3 ml ONETIME ONE Administration Albuterol/Ipratropium Confirm 04/19/20 11:10 04/19/20 11:39 Duoneb 3.0-0.5 Mg/3 Ml Administered 04/19/20 11:11 Not Given Dose 3 ml .ROUTE .STK-MED ONE Aspirin 324 mg 04/19/20 10:34 04/19/20 11:39 Aspirin PO 04/19/20 10:35 324 mg ONETIME ONE Administration Benzonatate 200 mg 04/19/20 11:10 04/19/20 11:40 Tessalon Perles PO 04/19/20 11:11 200 mg ONETIME ONE Administration Dexamethasone 6 mg 04/19/20 10:34 04/19/20 11:38 Decadron IVPUSH 04/19/20 10:35 6 mg ONETIME ONE Administration - Radiology Interpretation Free Text/Narrative:: [facility] [place] [facility] Final Radiology Report Call: [phone] assistance Online chat: [email or web address] Name: LEESA SUN Age: 59Years M Date: 04/19/2020 SSN: -- : [id number] Study: CR CHEST 2V Requesting Physician: KATYA HERRERA Images: 2 Addl Studies: Provided Clinical History: cough, pleuritic chest pain Contrast: Contrast Medium: Contrast Amount: Contrast Method: CONFIDENTIALITY STATEMENT This report is intended only for use by the referring physician, and only in accordance with law. If you received this in error, call [phone]. Page 1 of 1 PROCEDURE INFORMATION: Exam: XR Chest, 2 Views Exam date and time: 04/19/2020 11:34 AM Age: 59 years old Clinical indication: Cough; Additional info: Cough, pleuritic chest pain TECHNIQUE: Imaging protocol: XR of the chest Views: 2 views. COMPARISON: CT Chest wo Cont 02/07/2017 1:14 PM FINDINGS: Lungs: Partly calcified nodule in the lingula. The lungs are otherwise clear. Pleural spaces: Unremarkable. No pleural effusion. No pneumothorax. Heart/Mediastinum: Normal heart and cardiomediastinal silhouette. Vasculature: Normal pulmonary vessel caliber. Normal aorta. Bones/joints: The bones are intact. IMPRESSION: Chronic benign left upper lobe lung nodule, otherwise, unremarkable. No acute abnormality. Thank you for allowing us to participate in the care of your patient. Dictated and Authenticated by: Fernando Daivs MD 04/19/2020 11:51 AM Central Time ([place] & [place]) Departure - Departure Time of Disposition: 12:03 Disposition: Home, Self-Care 01 Condition: Good Clinical Impression: Upper respiratory infection, acute Reactive airway disease with wheezing Qualifiers: Asthma severity: moderate Asthma persistence: persistent Asthma complication type: with acute exacerbation Qualified Code(s): J45.41 - Moderate persistent asthma with (acute) exacerbation Instructions: Upper Respiratory Infection, Adult, [id number], Asthma, Adult, [id number] Forms: ED Department Discharge Additional Instructions: Rx: Albuterol Nebulizer Solution Rx: Tessalon Perles 200mg Follow up in clinic in 5 to 7 days if not improving. Return ER if you develop difficulty breathing. Sepsis Event Note (ED) - Focused Exam Vital Signs: Vital Signs Temp Pulse Resp BP Pulse Ox 04/19/20 11:22 99 04/19/20 10:30 96 F L 64 16 152/75 H 100 - My Orders Last 24 Hours: My Active Orders 04/19/20 10:33 EKG 12 Lead [EKG Documentation Completion] [RC] STAT Sodium Chloride 0.9% [Saline Flush] 10 ml FLUSH ASDIRECTED PRN Peripheral IV Insertion Pediatric [OM.PC] Stat 04/19/20 10:34 Peripheral IV Care [RC] . DIRECTED 04/19/20 10:41 CULTURE BLOOD [BC] Stat 04/19/20 11:10 RT Aerosol Therapy [RC] ASDIRECTED - Assessment/Plan Last 24 Hours: My Active Orders 04/19/20 10:33 EKG 12 Lead [EKG Documentation Completion] [RC] STAT Sodium Chloride 0.9% [Saline Flush] 10 ml FLUSH ASDIRECTED PRN Peripheral IV Insertion Pediatric [OM.PC] Stat 04/19/20 10:34 Peripheral IV Care [RC] . DIRECTED 04/19/20 10:41 CULTURE BLOOD [BC] Stat 04/19/20 11:10 RT Aerosol Therapy [RC] ASDIRECTED
[2020-04-19] MEDS ORDERED: Sodium Chloride 0.9% 10 ML Syringe FLUSH PRN (10:33)
[2020-04-19] MEDS ORDERED: Aspirin 81 MG Tab.Chew PO ONE (10:34)
[2020-04-19] MEDS ORDERED: Dexamethasone 4 MG/ML SDV IVPUSH ONE (10:34)
[2020-04-19 10:53] VITALS: BP 152/75
[2020-04-19] MEDS ORDERED: Albuterol/Ipratropium 3.0-0.5 MG/3 ML Neb Soln ONE (11:10)
[2020-04-19] MEDS ORDERED: Benzonatate 100 MG Cap PO ONE (11:10)
[2020-04-19] MEDS ORDERED: Albuterol/Ipratropium 3.0-0.5 MG/3 ML Neb Soln NEB ONE (11:10)
[2020-04-19 11:11] LABS: CHLORIDE,CL 102 mmol/L (98-107); SODIUM,NA 141 mmol/L (136-145)
[2020-04-19 11:12] LABS: PTT,PARTIAL THROMBOPLSTIN TIME 24.5 SEC (22.0-34.0)
[2020-04-19 11:24] VITALS: PULSE 99
--- NOTE | 2020-04-19 11:51 | CR ---
PROCEDURE INFORMATION: Exam: XR Chest, 2 Views Exam date and time: 04/19/2020 11:34 AM Age: 59 years old Clinical indication: Cough; Additional info: Cough, pleuritic chest pain TECHNIQUE: Imaging protocol: XR of the chest Views: 2 views. COMPARISON: CT Chest wo Cont 02/07/2017 1:14 PM FINDINGS: Lungs: Partly calcified nodule in the lingula. The lungs are otherwise clear. Pleural spaces: Unremarkable. No pleural effusion. No pneumothorax. Heart/Mediastinum: Normal heart and cardiomediastinal silhouette. Vasculature: Normal pulmonary vessel caliber. Normal aorta. Bones/joints: The bones are intact. IMPRESSION: Chronic benign left upper lobe lung nodule, otherwise, unremarkable. No acute abnormality.
== END 2020-04-19 12:44 | disposition home or self-care (01) ==
LOC: DL.ED 10:23
DX: J45.41 Moderate persistent asthma with (acute) exacerbation (principal); J06.9 Acute upper respiratory infection, unspecified; R00.1 Bradycardia, unspecified; E78.00 Pure hypercholesterolemia, unspecified; I10 Essential (primary) hypertension; J45.909 Unspecified asthma, uncomplicated; K21.9 Gastro-esophageal reflux disease without esophagitis; E11.9 Type 2 diabetes mellitus without complications; E66.9 Obesity, unspecified; Z68.41 Body mass index [BMI] 40.0-44.9, adult; Z86.16 Personal history of COVID-19; Z79.82 Long term (current) use of aspirin; Z79.899 Other long term (current) drug therapy
CPT/HCPCS: 36415; 71046; 80053; 82728; 83605; 83615; 83880; 84484; 85025; 85379; 85610; 85730; 86140; 87040; 93005; 94640; 96374; 99285; A9270; J1100; 93010; 99284; J7620-GY

== ENCOUNTER 2021-07-02 12:03 | Emergency (ER) | payer OTHER ==
[2021-07-02] MEDS ORDERED: Ketorolac 30 MG/ML SDV IM ONE (15:19)
[2021-07-02] MEDS ORDERED: Acetaminophen/HYDROcodone 325-10 MG Tab ONE (16:02)
[2021-07-02 16:09] VITALS: BP 108/93; PULSE 47
== END 2021-07-02 16:11 | disposition home or self-care (01) ==
LOC: DL.ED 12:03
DX: S16.1XXA Strain of muscle, fascia and tendon at neck level, initial encounter (principal); S70.02XA Contusion of left hip, initial encounter; S50.02XA Contusion of left elbow, initial encounter; S40.012A Contusion of left shoulder, initial encounter; I10 Essential (primary) hypertension; E11.9 Type 2 diabetes mellitus without complications; N40.0 Benign prostatic hyperplasia without lower urinary tract symptoms; E66.9 Obesity, unspecified; Z68.41 Body mass index [BMI] 40.0-44.9, adult; Z79.82 Long term (current) use of aspirin; Z79.899 Other long term (current) drug therapy; W00.0XXA Fall on same level due to ice and snow, initial encounter; Y99.0 Civilian activity done for income or pay
CPT/HCPCS: 70450; 72125; 73030-LT; 73030-RT; 73080-LT; 96372; 99284; 99284-25; J1885

== ENCOUNTER 2024-06-04 22:06 | Emergency (ER) | payer SELFPAY ==
[2024-06-04] MEDS ORDERED: Sodium Chloride 0.9% 10 ML Syringe FLUSH PRN (22:33)
[2024-06-04 22:38] VITALS: PULSE 50
[2024-06-04 22:38] LABS: HEMATOCRIT 43.1 % (40.0-54.0); HEMOGLOBIN 14.6 g/dL (14.0-18.0); MEAN CORPUSCULAR HEMOGLOBIN 29.8 pg (27.0-34.0); MEAN CORPUSCULAR HGB CONC 33.9 g/dL (33.0-35.0); RED BLOOD CELL COUNT 4.9 10^6/uL (4.6-6.2); WHITE BLOOD CELL COUNT,WBC 6.6 10^3/uL (5.0-10.0)
[2024-06-04] MEDS: Ondansetron 4 MG/2 ML SDV IVPUSH ONE (22:44)
[2024-06-04] MEDS: Aspirin 81 MG Tab.Chew PO ONE (22:48)
[2024-06-04] MEDS: Nitroglycerin 0.4 MG Tab.SL SL PRN (22:49)
[2024-06-04 22:57] LABS: ALBUMIN 3.7 g/dL (3.4-5.0); ANION GAP 10.3 mEq/L (7-13); BILIRUBIN TOTAL 1.1 mg/dL (0.2-1.0); BUN/CREATININE RATIO 12.6 (No establ ref range); CALCIUM 9.5 mg/dL (8.5-10.1); CREATININE 1.27 mg/dL (0.70-1.30); EST CRCL DRUG DOSING (CG) 62.27 mL/min; POTASSIUM,K 3.3 mmol/L (3.5-5.1); PROTEIN TOTAL,TP 7.4 g/dL (6.4-8.2)
[2024-06-04 22:59] LABS: PROTHROMBIN TIME 10.4 SEC (9.0-12.0); PTT,PARTIAL THROMBOPLSTIN TIME 25.3 SEC (22.0-34.0)
[2024-06-04 23:08] VITALS: BP 126/73
[2024-06-04] MEDS: GI Cocktail Oral Solution 30 ML PO ONE (23:55)
[2024-06-05] MEDS: Ketorolac 30 MG/ML SDV IVPUSH ONE (02:35)
[2024-06-05] MEDS: Cyclobenzaprine 10 MG Tab PO ONE (02:36)
[2024-06-05] MEDS: Take Home: Cyclobenzaprine 10 MG Tab, 4 Tab Pack PO ONE (02:36)
== END 2024-06-05 02:58 | disposition home or self-care (01) ==
LOC: MERGE 22:06 → DL.ED 22:06
DX: E11.8 Type 2 diabetes mellitus with unspecified complications (principal); I25.10 Atherosclerotic heart disease of native coronary artery without angina pectoris; E66.9 Obesity, unspecified; I10 Essential (primary) hypertension; M62.831 Muscle spasm of calf; Z91.040 Latex allergy status; Z86.16 Personal history of COVID-19; Z90.49 Acquired absence of other specified parts of digestive tract
CPT/HCPCS: 36415; 71045; 80053; 83735; 84484; 85027; 85610; 85730; 93005; 96374; 96375; 99285; A9270; J1885; J2405; 93010; 99284